=== PATIENT | female | born 1980 ===

== ENCOUNTER → 2018-02-09 | Outpatient (CLI) | payer OTHER ==
[~2018-02-09] MED LIST: HYDR25TA6 PO; LISI40TA PO
[2018-02-09 15:58] LABS: BASOPHILS # (AUTO) 0.05 x10^3/uL (0-0.1); BASOPHILS % (AUTO) 1 % (0-1); EOSINOPHILS # (AUTO) 0.16 x10^3/uL (0-0.4); EOSINOPHILS % (AUTO) 2 % (1-7); LYMPHOCYTES # (AUTO) 2.88 x10^3/uL (1-3.4); LYMPHOCYTES % (AUTO) 30 % (22-44); MD NO; MEAN CORPUSCULAR HEMOGLOBIN 29.9 pg (27.0-34.8); MEAN CORPUSCULAR VOLUME 87.9 fL (80-100); MEAN PLATELET VOLUME 8.1 fL (7.4-10.4); MONOCYTES # (AUTO) 0.61 x10^3/uL (0.2-0.8); MONOCYTES % (AUTO) 6 % (2-9); NEUTROPHILS # (AUTO) 5.92 x10^3/uL (1.8-6.8); NEUTROPHILS % (AUTO) 62 % (42-75); PLATELET COUNT 328 x10^3/uL (130-400); RED BLOOD COUNT 4.71 x10^6/uL (3.82-5.3); RED CELL DISTRIBUTION WIDTH 12.6 % (9.6-15.2)
[2018-02-09 16:08] LABS: INTERNATIONAL NORMALIZED RATIO 0.95 (0.93-1.1); PROTHROMBIN TIME 9.8 Seconds (9.6-11.5)
[2018-02-09 16:12] LABS: ANION GAP 10 mmol/L (5-15); CHLORIDE 106 mmol/L (98-107)
[2018-02-09 16:18] LABS: ALANINE AMINOTRANSFERASE 23 U/L (12-78); ALKALINE PHOSPHATASE 92 U/L (45-117); BILIRUBIN,TOTAL 0.4 mg/dL (0.2-1.0); TOTAL PROTEIN 7.9 g/dL (6.4-8.2)
== END ==
LOC: MERGE 13:06 → STAR 13:06
PROVIDERS: ATTEND Specialist
DX: D25.9 Leiomyoma of uterus, unspecified (principal); R19.07 Generalized intra-abdominal and pelvic swelling, mass and lump
CPT/HCPCS: 36415; 80053; 84703; 85025; 85610; 85730

== ENCOUNTER → 2018-02-09 | Outpatient (CLI) | payer OTHER | LOC: RAD 12:59 → MERGE 12:59 | PROVIDERS: ATTEND Specialist | DX: C54.1 Malignant neoplasm of endometrium (principal); N83.202 Unspecified ovarian cyst, left side; N92.0 Excessive and frequent menstruation with regular cycle | CPT/HCPCS: 76830 ==

== ENCOUNTER 2018-02-14 05:43 | Day surgery (SDC) | payer OTHER ==
[~2018-02-14] VITALS: Ht 165.1 cm; Wt 90.3 kg
[2018-02-14] MEDS ORDERED: LACTATED RINGERS 1,000 ML IV SCH (06:05)
[2018-02-14 06:10] VITALS: BP 132/89
[2018-02-14] MEDS ORDERED: BUPIVACAINE/PF 0.25% ONE (06:43)
[2018-02-14] MEDS ORDERED: EPINEPHRINE 1 MG/ML, 1ML ONE (06:44)
[2018-02-14 06:50] LABS: HCG UR SG 1.024 (1.003-1.030)
[2018-02-14] MEDS ORDERED: GABAPENTIN 300 MG CAPSULE PO STA (07:08)
[2018-02-14] MEDS ORDERED: ACETAMINOPHEN 500 MG TABLET PO STA (07:08)
[2018-02-14] MEDS ORDERED: OxyconTIN ER 20 MG TAB.ER PO STA (07:08)
[2018-02-14] MEDS ORDERED: MIDAZOLAM 1 MG/ML, 2ML ONE (07:08)
[2018-02-14] MEDS ORDERED: FENTANYL PF 250 MCG/5ML ONE (07:08)
[2018-02-14] MEDS ORDERED: ONDANSETRON ODT 8 MG PO STA (07:10)
[2018-02-14] MEDS ORDERED: SCOPOLAMINE PATCH, 1.5MG PATCH.TD72 TD STA (07:11)
[2018-02-14] MEDS ORDERED: PROPOFOL 10 MG/ML, 20ML ONE (07:12)
[2018-02-14] MEDS ORDERED: LIDOCAINE-MPF 2% ,5ML ONE (07:12)
[2018-02-14] MEDS ORDERED: ROCURONIUM 10MG/ML,5ML ONE (07:13)
[2018-02-14] MEDS ORDERED: PHENYLEPHRINE 10 MG/ML ONE (07:14)
[2018-02-14] MEDS ORDERED: DEXAMETHASONE 4 MG/ML, 1ML ONE ×2 (07:15)
[2018-02-14] MEDS ORDERED: NEOSTIGMINE 1 MG/ML, 10ML ONE (07:41)
[2018-02-14] MEDS ORDERED: CEFOTETAN 2 GM ONE (07:41)
[2018-02-14] MEDS ORDERED: MORPHINE SULFATE 4 MG/ML, 1ML IV PRN (08:30)
[2018-02-14] MEDS ORDERED: LABETALOL 5MG/ML, 20ML IV PRN (08:30)
[2018-02-14] MEDS ORDERED: hydrALAzine 20 MG/ML, 1ML IV PRN (08:30)
[2018-02-14] MEDS ORDERED: PROMETHAZINE 25 MG/ML, 1ML IV PRN (08:30)
[2018-02-14] MEDS ORDERED: METOCLOPRAMIDE 5 MG/ML, 2ML IV PRN (08:30)
[2018-02-14] MEDS ORDERED: FENTANYL PF 100 MCG/2ML ONE ×3 (08:36→10:06)
[2018-02-14] MEDS ORDERED: GLYCOPYRROLATE 0.4 MG/2 ML, 2ML ONE (09:16)
[2018-02-14] MEDS ORDERED: GLYCOPYRROLATE 0.2MG/1ML, 5ML ONE (09:16)
[2018-02-14] MEDS ORDERED: MEPERIDINE/PF 50 MG/ML ONE (09:43)
[2018-02-14] MEDS: MEPERIDINE/PF 25MG/0.5ML IVPush PRN ×2 (09:46→09:52)
[2018-02-14] MEDS: FENTANYL PF 100 MCG/2ML IV PRN ×2 (09:54→10:07)
[2018-02-14] MEDS ORDERED: KETOROLAC 30 MG/1 ML ONE (09:57)
[2018-02-14] MEDS ORDERED: KETOROLAC 30 MG/1 ML IVPush ONE (10:00)
[2018-02-14] MEDS ORDERED: OXYcodone 5 MG/5 ML ORAL.SOL UDC ONE (10:01)
[2018-02-14] MEDS: OXYcodone 5 MG/5 ML ORAL.SOL UDC PO PRN ×2 (10:02→11:46)
== END 2018-02-14 12:05 ==
LOC: OUT 05:43
PROVIDERS: ATTEND Specialist
DX: N94.6 Dysmenorrhea, unspecified (principal); D25.9 Leiomyoma of uterus, unspecified; K42.9 Umbilical hernia without obstruction or gangrene; I10 Essential (primary) hypertension
CPT/HCPCS: 36415; 49652; 58571; 81025; 86850; 86900; 86923; 88307; J0171; J1100; J1885; J2175; J2250; J2370; J2704; J2710; J3010; J3490; J7120; Q0162; S0074